=== PATIENT | female | born 1990 | race Caucasian/White ===

== ENCOUNTER 2017-06-22 11:46 | Observation (INO) | payer BC, OTHER ==
[2017-06-22] MEDS ORDERED: HYDROCODONE/ACETAMINOPHEN 5-325 MG TABLET PO ONE (12:32)
[2017-06-22] MEDS ORDERED: ONDANSETRON 4 MG TAB.RAPDIS PO ONE (12:32)
--- NOTE | 2017-06-22 12:34 | ER Document Report ---
ED Medical Screen (RME) - General Chief Complaint: Epigastric Pain Stated Complaint: ABDOMINL PAIN Time Seen by Provider: 06/22/17 12:29 Notes: 27-year-old female patient had barbecue for dinner last night, woke up at 400 severe epigastric right upper quadrant abdominal pain with nausea and vomiting. I have greeted and performed a rapid initial assessment of this patient. A comprehensive ED assessment and evaluation of the patient, analysis of test results and completion of the medical decision making process will be conducted by additional ED providers. TRAVEL OUTSIDE OF THE [place] IN LAST 30 DAYS: No - Related Data Allergies/Adverse Reactions: No Known Allergies Allergy (Unverified 06/22/17 11:53) Past Medical History - Social History Frequency of alcohol use: Occasional Drug Abuse: Marijuana Renal/ Medical History: Denies: Hx Peritoneal Dialysis Physical Exam - Vital signs Vitals: Temp Pulse Resp BP Pulse Ox 97.4 F 95 20 118/73 100 06/22/17 12:03 06/22/17 12:03 06/22/17 12:03 06/22/17 12:03 06/22/17 12:03 Course - Vital Signs Vital signs: Temp Pulse Resp BP Pulse Ox 97.4 F 95 20 118/73 100 06/22/17 12:03 06/22/17 12:03 06/22/17 12:03 06/22/17 12:03 06/22/17 12:03
[2017-06-22 12:56] LABS: HEMATOCRIT 44.1 % (36.0-47.0); HEMOGLOBIN 14.9 g/dL (12.0-15.5); MEAN CORPUSCULAR HEMOGLOBIN 30.3 pg (27.0-33.4); MEAN CORPUSCULAR HGB CONC 33.8 g/dL (32.0-36.0); MEAN CORPUSCULAR VOLUME 90 fl (80-97); PLATELET COUNT 308 10^3/uL (150-450); RED BLOOD COUNT 4.93 10^6/uL (3.72-5.28)
[2017-06-22 13:26] LABS: ABSOLUTE LYMPHOCYTES# (MANUAL) 1.3 10^3/uL (0.5-4.7); ABSOLUTE MONOCYTES # (MANUAL) 0.7 10^3/uL (0.1-1.4); ABSOLUTE NEUTROPHILS# (MANUAL) 19.8 10^3/uL (1.7-8.2); ALANINE AMINOTRANSFERASE 35 U/L (9-52); ALBUMIN 5.2 g/dL (3.5-5.0); ALKALINE PHOSPHATASE 100 U/L (38-126); ANION GAP 12 (5-19); ASPARTATE AMINO TRANSFERASE 22 U/L (14-36); BASOPHILS % (MANUAL) 1 % (0-2); BILIRUBIN,DIRECT 0.2 mg/dL (0.0-0.4); BILIRUBIN,TOTAL 1.1 mg/dL (0.2-1.3); BLOOD UREA NITROGEN 9 mg/dL (7-20); CALCIUM 10.9 mg/dL (8.4-10.2); CARBON DIOXIDE 24 mmol/L (22-30); CHLORIDE 104 mmol/L (98-107); EOSINOPHILS % (MANUAL) 0 % (0-6); GLUCOSE 98 mg/dL (75-110); LIPASE 25.8 U/L (23-300); LYMPHOCYTES % (MANUAL) 6 % (13-45); MONOCYTES % (MANUAL) 3 % (3-13); POTASSIUM 4.1 mmol/L (3.6-5.0); SEGMENTED NEUTROPHILS % (MAN) 90 % (42-78); SODIUM 140.4 mmol/L (137-145); TOTAL CELLS COUNTED 100; TOTAL PROTEIN 8.5 g/dL (6.3-8.2); TOXIC GRANULATION SLIGHT; TOXIC VACUOLATION PRESENT
[2017-06-22 13:27] LABS: PLATELET COMMENT ADEQUATE; POLYCHROMASIA SLIGHT
--- NOTE | 2017-06-22 14:06 | RADIOLOGY REPORT (SQ) ---
EXAM DESCRIPTION: U/S ABDOMEN LIMITED W/O DOP COMPLETED DATE/TIME: 06/22/2017 1:54 pm REASON FOR STUDY: RUQ, epigastric pain started 0400, Bar-B-Q dinner COMPARISON: None. TECHNIQUE: Dynamic and static grayscale images acquired of the abdomen and recorded on PACS. Additio nal selected color Doppler and spectral images recorded. LIMITATIONS: None. FINDINGS: PANCREAS: No masses. Visualized pancreatic duct normal caliber. LIVER: No masses. Echotexture normal. LIVER VASCULATURE: Normal directional flow of the main portal vein and hepatic veins. GALLBLADDER: No stones. Normal wall thickness. No pericholecystic fluid. ULTRASOUND-DETECTED HDEZ'S SIGN: Negative. INTRAHEPATIC DUCTS AND COMMON DUCT: CBD and intrahepatic ducts normal caliber. No filling defects. INFERIOR VENA CAVA: Normal flow. AORTA: No aneurysm. RIGHT KIDNEY: Normal size. Normal echogenicity. No solid or suspicious masses. No hydronephrosis. No calcifications. PERITONEAL AND RIGHT PLEURAL SPACE: No ascites or effusions. OTHER: No other significant findings. IMPRESSION: NORMAL RIGHT UPPER QUADRANT ULTRASOUND. TECHNICAL DOCUMENTATION: JOB ID: [id number] [employer]- All Rights Reserved
[2017-06-22] MEDS ORDERED: NORMAL SALINE 1000 ML 1,000 ML IV ONE (15:10)
[2017-06-22] MEDS ORDERED: MORPHINE SULFATE 10 MG/ML INJ IV ONE (15:10)
[2017-06-22] MEDS ORDERED: ONDANSETRON HCL INJ/PF 4 MG/2 ML SDV IV ONE (15:10)
--- NOTE | 2017-06-22 15:13 | ER Document Report ---
ED General - General Chief Complaint: Epigastric Pain Stated Complaint: ABDOMINL PAIN Time Seen by Provider: 06/22/17 12:29 Notes: 27-year-old female patient. No significant past medical history. Woke up at 4 AM having some achy pain in her central abdomen. Continue to get worse throughout the day. Presented to the emergency department. Pain is mostly located around the umbilicus and seems to radiate down to the right lower quadrant. Associated with nausea and vomiting. Denies any fever, chills, sweats. Denies any significant back pain or hip pain. Denies any change in sexual partners. Patient is . Patient denies any abnormal vaginal discharge, , abnormal vaginal bleeding or other concerns at this time. TRAVEL OUTSIDE OF THE [place] IN LAST 30 DAYS: No - HPI Onset: This morning Quality of pain: Throbbing Severity: Moderate Pain Level: 3 Associated symptoms: Nausea, Vomiting Exacerbated by: Movement - Related Data Allergies/Adverse Reactions: No Known Allergies Allergy (Unverified 06/22/17 11:53) Past Medical History - General Information source: Patient - Social History Smoking Status: Never Smoker Cigarette use (# per day): No Frequency of alcohol use: Occasional Drug Abuse: Marijuana Lives with: Spouse/Significant other Family History: Reviewed & Not Pertinent Patient has suicidal ideation: No Patient has homicidal ideation: No - Past Medical History Cardiac Medical History: Reports: None Pulmonary Medical History: Reports: None EENT Medical History: Reports: None Neurological Medical History: Reports: None Endocrine Medical History: Reports: None Renal/ Medical History: Reports: None. Denies: Hx Peritoneal Dialysis Malignancy Medical History: Reports: None GI Medical History: Reports: None Musculoskeltal Medical History: Reports None Skin Medical History: Reports None Review of Systems - Review of Systems Constitutional: denies: Fever, Malaise, Weakness EENT: denies: Eye pain, Eye discharge, Blurred vision, Throat pain, Mouth pain Cardiovascular: denies: Chest pain, Palpitations, Heart racing, Orthopnea, Dizziness, Lightheaded Respiratory: denies: Cough, Hurts to breathe, Short of breath, Wheezing Gastrointestinal: Abdominal pain, Nausea, Vomiting, Poor appetite. denies: Black stools, Rectal bleeding Genitourinary: denies: Burning, Dysuria, Discharge, Frequency, Flank pain, Hematuria, Pain, Urgency, Retention Female Genitourinary: denies: No symptoms reported, , Heavy/abnormal periods, Irregular period, Vaginal discharge, Vaginal bleeding, Vaginal odor, Painful intercourse Musculoskeletal: denies: Back pain, Joint pain, Muscle pain, Muscle stiffness, Neck pain Skin: denies: Lesions, Lumps, Rash Hematologic/Lymphatic: denies: Anemia, Blood clots, Easy bleeding, Easy bruising Neurological/Psychological: denies: Confusion, Lost consciousness, Numbness Physical Exam - Vital signs Vitals: Temp Pulse Resp BP Pulse Ox 97.4 F 85 20 133/75 H 100 06/22/17 11:50 06/22/17 11:50 06/22/17 11:50 06/22/17 11:50 06/22/17 11:50 Interpretation: Normal - General General appearance: Appears well, Alert - HEENT Head: Normocephalic, Atraumatic Eyes: Normal Pupils: PERRL - Respiratory Respiratory status: No respiratory distress Chest status: Nontender Breath sounds: Normal Chest palpation: Normal - Cardiovascular Rhythm: Regular Heart sounds: Normal auscultation Murmur: No - Abdominal Inspection: Normal Distension: No distension Bowel sounds: Normal Tenderness: Tender, Guarding, Other - There is significant tenderness to palpation around the umbilicus which seems to radiate down to the right lower quadrant.. No: Rebound Organomegaly: No organomegaly - Back Back: Normal, Nontender - Extremities General upper extremity: Normal inspection, Nontender, Normal color, Normal ROM , Normal temperature General lower extremity: Normal inspection, Nontender, Normal color, Normal ROM , Normal temperature, Normal weight bearing. No: Ty's sign - Neurological Neuro grossly intact: Yes Cognition: Normal Orientation: AAOx4 [place] Coma Scale Eye Opening: Spontaneous [place] Coma Scale Verbal: Oriented [place] Coma Scale Motor: Obeys Commands [place] Coma Scale Total: 15 Speech: Normal Motor strength normal: LUE, RUE, LLE, RLE Sensory: Normal - Psychological Associated symptoms: Normal affect, Normal mood - Skin Skin Temperature: Warm Skin Moisture: Dry Skin Color: Normal Course - Re-evaluation Re-evalutation: 06/22/17 15:38 She has a white blood cell count of 22,000. Ultrasound was ordered at triage which was unremarkable. Will consult with surgery right now she has significant concerns at this time for appendicitis. 01/26/18 16:20 CT scan confirms acute appendicitis. Antibiotics ordered. Consulted with Dr. Marin with general surgery. Will take to the OR shortly. Patient is n.p.o. - Vital Signs Vital signs: Temp Pulse Resp BP Pulse Ox 97.4 F 95 20 118/73 100 06/22/17 12:03 06/22/17 12:03 06/22/17 12:03 06/22/17 12:03 06/22/17 12:03 - Laboratory Result Diagrams: 06/22/17 12:44 06/22/17 12:44 Laboratory results interpreted by me: 06/22/17 06/22/17 06/22/17 12:44 12:44 14:53 WBC 22.0 H Seg Neuts % (Manual) 90 H Lymphocytes % (Manual) 6 L Abs Neuts (Manual) 19.8 H Calcium 10.9 H Total Protein 8.5 H Albumin 5.2 H Urine Ketones 20 H Discharge - Discharge Clinical Impression: Acute appendicitis Qualifiers: Acute appendicitis type: unspecified acute appendicitis type Qualified Code(s) : K35.80 - Unspecified acute appendicitis Condition: Good Disposition: ADMITTED OBSERVATION Admitting Provider: Colinist Donte Marin Unit Admitted: Surgical Floor
[2017-06-22 15:37] LABS: APPEARANCE,URINE SLIGHTLY-CLOUDY; BILIRUBIN,URINE NEGATIVE (NEGATIVE); COLOR,URINE YELLOW; GLUCOSE, URINE NEGATIVE (NEGATIVE); KETONES,URINE 20 mg/dL (NEGATIVE); LEUKOCYTE ESTERASE,URINE NEGATIVE (NEGATIVE); NITRITE,URINE NEGATIVE (NEGATIVE); PROTEIN,URINE NEGATIVE (NEGATIVE); UROBILINOGEN,URINE NEGATIVE mg/dL (<2.0)
[2017-06-22] MEDS ORDERED: SUCCINYLCHOLINE CHLORIDE INJ 200 MG/10 ML VIAL ONE (15:51)
[2017-06-22] MEDS ORDERED: ROCURONIUM BROMIDE INJ 50 MG/5 ML VIAL IV ONE (15:51)
[2017-06-22] MEDS ORDERED: ONDANSETRON HCL INJ/PF 4 MG/2 ML SDV ONE ×2 (15:51→17:25)
[2017-06-22] MEDS ORDERED: METOCLOPRAMIDE HCL INJ/PF 10 MG/2 ML SDV ONE (15:51)
[2017-06-22] MEDS ORDERED: GLYCOPYRROLATE INJ 0.4 MG/2 ML VIAL ONE (15:51)
[2017-06-22] MEDS ORDERED: LIDOCAINE 2% INJ-PF (20 MG/ML) 2 ML AMPUL ONE (15:51)
[2017-06-22] MEDS ORDERED: KETOROLAC TROMETHAMINE 60 MG/2 ML SDV ONE (15:51)
[2017-06-22] MEDS ORDERED: NEOSTIGMINE METHYLSULFATE 10 MG/10 ML VIAL ONE (15:51)
[2017-06-22] MEDS ORDERED: DEXAMETHASONE SOD PHOSPHATE INJ 4 MG/1 ML VIAL ONE (15:51)
--- NOTE | 2017-06-22 16:14 | RADIOLOGY REPORT (SQ) ---
EXAM DESCRIPTION: CT ABD/PELVIS WITH IV ONLY COMPLETED DATE/TIME: 06/22/2017 3:52 pm REASON FOR STUDY: periumbilical pain with wbc OF 20k COMPARISON: None. TECHNIQUE: CT scan of the abdomen and pelvis performed using helical scanning technique with dynamic intravenous contrast injection. No oral contrast. Images reviewed with lung, soft tissue, and bone windows. Reconstructed coronal and sagittal MPR images reviewed. Delayed images for evaluation of the urinary system also acquired. All images stored on PACS. All CT scanners at this facility use dose modulation, iterative reconstruction, and/or weight based d osing when appropriate to reduce radiation dose to as low as reasonably achievable (ALARA). [facility]: Dose Right [facility]: CareDose [facility]: Dose Right [facility]: Teradose 4D [facility]: Audience CONTRAST TYPE AND DOSE: contrast/concentration: Isovue 370.00 mg/ml; Total Contrast Delivered: 93.0 ml; Total Saline Delivered: 71.0 ml RENAL FUNCTION: Creatinine 0.7 RADIATION DOSE: CT Rad equipment meets quality standard of care and radiation dose reduction techniq ues were employed. CTDIvol: 11.8 - 15.1 mGy. DLP: 1381 mGy-cm.. LIMITATIONS: Lack of oral contrast. FINDINGS: LOWER CHEST: No significant findings. No nodules or infiltrates. LIVER: Normal size. No masses. No dilated ducts. SPLEEN: Normal size. No focal lesions. PANCREAS: No masses. No significant calcifications. No adjacent inflammation or peripancreatic fluid collections. Pancreatic duct not dilated. GALLBLADDER: No identified stones by CT criteria. No inflammatory changes to suggest cholecystitis. ADRENAL GLANDS: No significant masses or asymmetry. RIGHT KIDNEY AND URETER: No solid masses. No significant calcifications. No hydronephrosis or hyd roureter. LEFT KIDNEY AND URETER: No solid masses. No significant calcifications. No hydronephrosis or hydr oureter. AORTA AND VESSELS: No aneurysm. No dissection. Renal arteries, SMA, celiac without stenosis. RETROPERITONEUM: No retroperitoneal adenopathy, hemorrhage or masses. BOWEL AND PERITONEAL CAVITY: No masses or inflammatory changes. No free fluid or peritoneal masses. APPENDIX: There is a dilated tubular structure in the right aspect of the pelvis posteriorly likely d ilated appendix consistent with appendicitis although it is difficult to confirm in continuity with c ecum. No abscess. PELVIS: No mass. No free fluid. Normal bladder. ABDOMINAL WALL: No masses. No hernias. BONES: No significant or acute findings. OTHER: No other significant finding. IMPRESSION: Dilated tubular structure deep in the right pelvis likely representing dilated appendix and appendicitis. No abscess. TECHNICAL DOCUMENTATION: JOB ID: [id number] Quality ID # [id number]: Final reports with documentation of one or more dose reduction techniques (e.g., Au tomated exposure control, adjustment of the mA and/or kV according to patient size, use of iterative reconstruction technique) 2010 [email or web address]- All Rights Reserved
[2017-06-22] MEDS ORDERED: CEFOXITIN 1 GM/D5W RTU 1 GM/50 ML RTUPB IV ONE (16:19)
[2017-06-22] MEDS ORDERED: BUPIVACAINE HCL 0.5 % INJ/PF 30 ML SDV ONE (16:47)
[2017-06-22] MEDS ORDERED: HYDROMORPHONE HCL INJ/PF 2 MG/ML AMPULE ONE (16:52)
[2017-06-22] MEDS ORDERED: EPHEDRINE SULFATE INJ 50 MG/1 ML AMPULE ONE (16:53)
[2017-06-22] MEDS ORDERED: MIDAZOLAM 2 MG/2 ML INJ ONE (16:53)
[2017-06-22] MEDS ORDERED: FENTANYL CITRATE INJ/PF 100 MCG/2 ML AMPUL ONE ×2 (16:53)
[2017-06-22] MEDS ORDERED: ACETAMINOPHEN 100 ML IV ONE (16:54)
[2017-06-22] MEDS ORDERED: PROPOFOL INJ 200 MG/20 ML VIAL IV ONE (16:54)
[2017-06-22] MEDS ORDERED: ONDANSETRON HCL INJ/PF 4 MG/2 ML SDV IV PRN ×2 (17:55→18:24)
[2017-06-22] MEDS ORDERED: PROMETHAZINE HCL INJ 25 MG/1 ML VIAL IV PRN ×2 (17:55)
[2017-06-22] MEDS ORDERED: MORPHINE SULFATE 10 MG/ML INJ IV PRN ×2 (17:55→18:24)
[2017-06-22] MEDS ORDERED: OXYCODONE-ACETAMINOPHEN 5-325 MG TABLET PO PRN ×3 (17:55→18:25)
[2017-06-22] MEDS ORDERED: MEPERIDINE HCL/PF INJ 25 MG/1 ML DISP.SYRIN IV PRN (17:55)
[2017-06-22] MEDS ORDERED: FENTANYL CITRATE INJ/PF 100 MCG/2 ML AMPUL IV PRN ×3 (17:55)
[2017-06-22] MEDS ORDERED: DIPHENHYDRAMINE HCL 50 MG/ML VIAL IV PRN (17:55)
--- NOTE | 2017-06-22 18:23 | Brief Operative Note ---
BRIEF OPERATIVE REPORT DATE OF SURGERY: 06/22/17 TIME OF SURGERY: 17:30 PREOPERATIVE DIAGNOSIS: Acute Appendicitis POSTOPERATIVE DIAGNOSIS: Same SURGEON: DOROTHY VILLALPANDO 1ST CANDY MAKER: VIANEY SIFUENTES FINDINGS: Acute Appendicitis COMPLICATIONS: None ESTIMATED BLOOD LOSS: negligible TISSUE REMOVED OR ALTERED: Appendix TECHNICAL PROCEDURE: See dictation
--- NOTE | 2017-06-22 19:44 | OPERATIVE REPORT E ---
Operative Report NAME: ANJANA GARDUNO : 1990 AGE: 27Y DATE OF SURGERY: 06/22/2017 ROOM: ED19 PREOPERATIVE DIAGNOSIS: ACUTE APPENDICITIS. POSTOPERATIVE DIAGNOSIS: ACUTE APPENDICITIS. OPERATION: Laparoscopic appendectomy. SURGEON: DOROTHY VILLALPANDO M.D. ANESTHESIA: General. FLUIDS: Crystalloids. DRAINS: None. COMPLICATIONS: None. CONDITION: Stable. INDICATION FOR PROCEDURE: This 27-year-old female presented to the emergency room with a 12-hour history of abdominal pain, which began in the lower midline, periumbilical region, and then radiated into the right lower quadrant. Patient had no change in bowel habits. She was seen in the emergency room. She was found to have mild to moderate right lower quadrant tenderness with guarding. Patient's white count was 22,000. CT scan revealed a dilated thickened appendix, suggestive of acute appendicitis. Patient is now brought to the operating room for definitive intervention. PROCEDURE: Patient was brought to the operating room suite and placed in the supine position on the operating table. Monitoring devices were attached. IV sedation was administered, followed by the induction of general endotracheal anesthesia. Patient's abdomen was prepped and draped in the usual sterile manner, and then a timeout was achieved. Once all concurred, local anesthesia was injected just below the umbilicus. We then made an incision through skin and subcutaneous tissue, down to the linea alba. Two 0 rectal stay sutures were placed in the linea alba. An incision was made between the 2 stay sutures. We then grasped the peritoneum with 2 hemostats. An incision was made between these 2 hemostats, thereby opening and entering the abdominal cavity. Digital exploration was done to ensure that there were no viscera adherent to the anterior abdominal wall. We then inserted our Linda trocar and secured it with the 2-0 Vicryl stay sutures, and began insufflation with CO2. Once we reached an intraabdominal pressure of 16, we inserted our laparoscopic camera and light source and surveyed the abdominal cavity. There was no evidence of any bleeding or injuries. We then placed our 2 remaining 5-mm trocars in the usual positions; 1 in the mid suprapubic position and 1 in the left lower quadrant. We immediately identified the cecum and we placed the bed in a Trendelenburg position and rotated it with the right side up and the left side down. We identified the appendix immediately and made an opening in the mesoappendix. Once this was done, we used the endoscopic TRISTAN to divide the appendix from the cecal base. We then reloaded the endoscopic TRISTAN and divided the mesoappendix with the TRISTAN. Once this was done, we placed the appendix in the Endo bag and removed it from the abdominal cavity. We surveyed the abdominal cavity for any further bleeding, and there was minimal bleeding from the staple line on the cecum, and this was cauterized. Once there was no further bleeding, we removed all trocars under direct vision and decompressed the abdomen, after irrigating the right lower quadrant. The bed was placed in the normal position, and then after decompressing the abdomen and removing all trocars, we approximated the infraumbilical fascial incision using 0 Vicryl on a UR-6 needle. Once this fascial defect was closed, all skin incisions were closed using 4-0 Vicryl subcuticular closure. The patient tolerated the procedure well. Sponge and instrument counts were correct. The patient was discharged to the PACU in stable condition. DICTATING PHYSICIAN: DOROTHY VILLALPANDO M.D. [id number] PHY#: [id number] ID: [id number] JOB#: [id number] ACCT: [id number] cc:DOROTHY VILLALPANDO M.D. >
[2017-06-22] MEDS: DEXTROSE 5%-LACTATED RINGERS 1,000 ML IV PRN (23:40)
[2017-06-23] MEDS: DEXTROSE 5%-LACTATED RINGERS 1,000 ML IV PRN (11:14)
[2017-06-23 11:51] VITALS: BP 125/85
--- NOTE | 2017-06-23 16:29 | PDOC DISCHARGE SUMMARY ---
General - Admit/Disc Date/PCP Admission Date/Primary Care Provider: 06/22/17 16:37 MARIA LUISA AWAD MD Discharge Date: 06/23/17 - Additional Information Resuscitation Status: Full Code Discharge Diet: Regular Discharge Activity: Activity As Tolerated, Balance Activity w/Rest Home Medications: Methylphenidate HCl [Methylphenidate ER] 1 tab PO TID PRN 06/22/17 History of Present Illness Patient complains of: She was admitted with complaints of abdominal pain History of Present Illness: ANJANA GARDUNO is a 27 year old female who was admitted 06/22/2017 with abdominal pain. Hospital Course Hospital Course: Patient was admitted 06/22/2017 taken to the operating room by Dr. Marin. Laparoscopic appendectomy was performed. Postoperative course was unremarkable. Warning of the first day she was eating normal diet, had normal bowel habits, and was ambulating. She is being discharged home. Physical Exam Vital Signs: Temp Pulse Resp BP Pulse Ox 98.2 F 53 L 16 125/85 100 06/23/17 11:49 06/23/17 11:49 06/23/17 11:49 06/23/17 11:49 06/23/17 11:49 Intake & Output 06/22/17 06/23/17 06/24/17 06:59 06:59 06:59 Intake Total 1500 Output Total 30 Balance 1470 General appearance: PRESENT: no acute distress - Incisions are clean dry and intact. The abdominal exam is unremarkable. Results Impressions: Abdomen Ultrasound 06/22/17 12:32 IMPRESSION: NORMAL RIGHT UPPER QUADRANT ULTRASOUND. Abdomen/Pelvis CT 06/22/17 15:11 IMPRESSION: Dilated tubular structure deep in the right pelvis likely representing dilated appendix and appendicitis. No abscess. Plan Discharge Plan: Discharge home. Return to [place] in 10 days for follow-up. Prescription for Morton 09/27/2024 #15, no refills, 1 or 2 tabs every 4 hours as needed pain. Discharge instructions Rial relating to diet and activity were given. Return to work slip was given. Time Spent: Less than 30 Minutes
== END 2017-06-23 12:17 | disposition home or self-care (01) ==
LOC: ER 11:46 → EH 16:37 → 2N 19:05
PROVIDERS: ADMIT Surgery; ATTEND Surgery
PROC: 0DTJ4ZZ Resection of Appendix, Percutaneous Endoscopic Approach (ICD-10-PCS; principal; 2017-06-22 17:30)
DX: K35.3 Acute appendicitis with localized peritonitis (principal); F12.10 Cannabis abuse, uncomplicated
CPT/HCPCS: 99285; 96361; 96375; 96365; 36415; 83690; 84703; 85025; 80053; 81001; 88304 ×2; 76705; 74177; 44970; G0378 ×3; J2250; J3490 ×3; J1100; J1885; S0119; J0694; J2765; J2270; J1170; J0330; J2405 ×2; J7030; J2704; J0131; 840; J3010

== ENCOUNTER 2018-08-30 17:06 | Emergency (ER) | payer OTHER ==
[2018-08-30 17:31] VITALS: BP 123/74
--- NOTE | 2018-08-30 18:02 | ER Document Report ---
ED Medical Screen (RME) - General Chief Complaint: Flank Pain Stated Complaint: FLANK PAIN Time Seen by Provider: 08/30/18 17:55 Primary Care Provider: MARIA LUISA AWAD MD [Primary Care Provider] - Follow up as needed Mode of Arrival: Ambulatory Information source: Patient Notes: Patient is a 28-year-old female who presents to the emergency department with pain in her right flank that radiates up into her shoulder and back. Patient denies any abdominal pain however there is tenderness to palpation to the right upper quadrant as well as epigastric area. Patient denies any nausea, vomiting or diarrhea. She states she had a small bowel movement this morning. She does report that she is having some vaginal bleeding however she states this has been ongoing since she had her IUD placed in April. Denies any dysuria or urinary frequency. Does report she has had a fever however she states that resolved yesterday. I have greeted and performed a rapid initial assessment of this patient. A comprehensive ED assessment and evaluation of the patient, analysis of test results and completion of the medical decision making process will be conducted by additional ED providers. Dictation of this chart was performed using voice recognition software; therefore, there may be some unintended grammatical errors. TRAVEL OUTSIDE OF THE [place] IN LAST 30 DAYS: No - Related Data Allergies/Adverse Reactions: No Known Allergies Allergy (Unverified 06/22/17 11:53) Past Medical History Renal/ Medical History: Denies: Hx Peritoneal Dialysis - Immunizations History of Influenza Vaccine for 02/2017 - 07/2017 Season: Yes Physical Exam - Vital signs Vitals: Temp Pulse Resp BP Pulse Ox 98.7 F 74 15 123/74 99 08/30/18 17:29 08/30/18 17:29 08/30/18 17:29 08/30/18 17:29 08/30/18 17:29 Course - Vital Signs Vital signs: Temp Pulse Resp BP Pulse Ox 98.7 F 74 15 123/74 99 08/30/18 17:29 08/30/18 17:29 08/30/18 17:29 08/30/18 17:29 08/30/18 17:29 Doctor's Discharge - Discharge Referrals: MARIA LUISA AWAD MD [Primary Care Provider] - Follow up as needed
[2018-08-30 18:30] LABS: ABSOLUTE EOSINOPHILS # (AUTO) 0.1 10^3/uL (0.0-0.6); ABSOLUTE LYMPHOCYTES (AUTO) 1.8 10^3/uL (0.5-4.7); ABSOLUTE MONOCYTES (AUTO) 0.7 10^3/uL (0.1-1.4); ABSOLUTE NEUT (AUTO) 3.5 10^3/uL (1.7-8.2); BASOPHILS % (AUTO) 0.4 % (0-2); EOSINOPHILS % (AUTO) 1.9 % (0-6); HEMATOCRIT 41.7 % (36.0-47.0); HEMOGLOBIN 14.3 g/dL (12.0-15.5); LYMPHOCYTES % (AUTO) 29.3 % (13-45); MEAN CORPUSCULAR HEMOGLOBIN 30.2 pg (27.0-33.4); MEAN CORPUSCULAR HGB CONC 34.4 g/dL (32.0-36.0); MEAN CORPUSCULAR VOLUME 88 fl (80-97); MONOCYTES % (AUTO) 10.7 % (3-13); PLATELET COUNT 230 10^3/uL (150-450); RED BLOOD COUNT 4.74 10^6/uL (3.72-5.28); RED CELL DISTRIBUTION WIDTH 13.1 % (11.5-14.0); SEGMENTED NEUTROPHILS % (AUTO) 57.7 % (42-78); TOTAL CELLS COUNTED % (AUTO) 100 %; WHITE BLOOD COUNT 6.1 10^3/uL (4.0-10.5)
[2018-08-30 18:37] LABS: APPEARANCE,URINE CLEAR; BILIRUBIN,URINE NEGATIVE (NEGATIVE); COLOR,URINE STRAW; GLUCOSE, URINE NEGATIVE (NEGATIVE); KETONES,URINE NEGATIVE (NEGATIVE); LEUKOCYTE ESTERASE,URINE NEGATIVE (NEGATIVE); NITRITE,URINE NEGATIVE (NEGATIVE); PROTEIN,URINE NEGATIVE (NEGATIVE); URINE SPECIFIC GRAVITY 1.003; UROBILINOGEN,URINE NEGATIVE mg/dL (<2.0)
[2018-08-30 18:50] LABS: ALANINE AMINOTRANSFERASE 26 U/L (9-52); ALBUMIN 4.7 g/dL (3.5-5.0); ALKALINE PHOSPHATASE 120 U/L (38-126); ANION GAP 11 (5-19); ASPARTATE AMINO TRANSFERASE 19 U/L (14-36); BILIRUBIN,DIRECT 0.2 mg/dL (0.0-0.4); BILIRUBIN,TOTAL 0.5 mg/dL (0.2-1.3); BLOOD UREA NITROGEN 12 mg/dL (7-20); CALCIUM 10.1 mg/dL (8.4-10.2); CARBON DIOXIDE 24 mmol/L (22-30); CHLORIDE 103 mmol/L (98-107); GLUCOSE 85 mg/dL (75-110); POTASSIUM 4.1 mmol/L (3.6-5.0); SODIUM 137.9 mmol/L (137-145)
--- NOTE | 2018-08-30 21:03 | ER Document Report ---
ED GI/ - General Chief Complaint: Flank Pain Stated Complaint: FLANK PAIN Time Seen by Provider: 08/30/18 17:55 Primary Care Provider: MARIA LUISA AWAD MD [COMMUNITY BASED STAFF] - Follow up as needed Mode of Arrival: Ambulatory Information source: Patient TRAVEL OUTSIDE OF THE [place] IN LAST 30 DAYS: No - HPI Patient complains to provider of: Flank pain Notes: 08/30/18 21:00 Patient is here with complaints of right flank pain. She states that she woke up with the pain this morning. The pain has been constant, but the intensity has waxed and waned. Nothing seems to make the pain better. Pain is moderate to severe. Pain is worse with taking deep breaths as well as movements and cough. She denies any specific chest pain or shortness of breath. No fever. No nausea, vomiting, diarrhea. No dysuria or hematuria. She denies any prior history of kidney stone. She has had prior appendectomy as well as . She has a Mirena IUD. She denies any recent long trips or surgeries, no leg pain or leg swelling, no smoking, no history of DVT or PE, no history of cancer. No rash. No injury. No other specific complaints at this time. - Related Data Allergies/Adverse Reactions: No Known Allergies Allergy (Unverified 06/22/17 11:53) Past Medical History - General Information source: Patient - Social History Smoking Status: Unknown if Ever Smoked Family History: Reviewed & Not Pertinent Patient has suicidal ideation: No Patient has homicidal ideation: No - Past Medical History Cardiac Medical History: Reports: Hx Hypertension Renal/ Medical History: Denies: Hx Peritoneal Dialysis Past Surgical History: Reports: Hx Appendectomy, Hx Section Review of Systems - Review of Systems -: Yes All other systems reviewed and negative Physical Exam - Vital signs Vitals: Temp Pulse Resp BP Pulse Ox 98.7 F 74 15 123/74 99 08/30/18 17:29 08/30/18 17:29 08/30/18 17:29 08/30/18 17:29 08/30/18 17:29 - Notes Notes: GENERAL: alert, cooperative, nontoxic, no distress. HEAD: normocephalic, atraumatic EYES: conjunctiva pink without discharge, no external redness or swelling. EARS: no external swelling, no external redness NOSE: atraumatic, no external swelling MOUTH/THROAT: mucous membranes moist and pink, posterior pharynx without erythema, swelling, exudate. No trismus or drooling. NECK: soft, supple, full range of motion, no meningismus. CHEST: no distress, lungs clear and equal throughout. No wheezing, rales, rhonchi. CARDIAC: regular rate and rhythm, no murmur, normal capillary refill, normal pulses. No peripheral edema noted. ABDOMEN: Soft, mild tenderness palpation of the right upper and right mid abdomen. No rebound tenderness or guarding. No mass. BACK: full range of motion, mild right CVA tenderness. EXTREMITIES: full range of motion of all extremities. No redness, no swelling. NEURO: alert and oriented x 3, no focal deficits, full range of motion of all extremities. PYSCH: appropriate mood, affect. Patient is cooperative. SKIN: pink, warm, dry, no rash. Course - Re-evaluation Re-evalutation: 08/30/18 22:10 CT negative for kidney stones or other acute abnormalities. IUD is noted to be flipped with possible implantation into the myometrium. No of other infla mmatory findings noted. Ultrasound has been ordered. We will continue to monitor patient at this time. 08/31/18 00:10 Ultrasound of the pelvis shows a malpositioned IUD but the arms were not well vi sualized. Left ovary was on visualized. I discussed the case with LABORATORY ASSOCIATE, Dr. gutierrez. She states that she will come to the emergency department at this time to remove the IUD to see if this helps with the patient's pain. Discussed this with the patient, she is in agreement with this plan and will await Dr. gutierrez's evaluation. 08/31/18 00:48 Patient was seen by LABORATORY ASSOCIATE in the emergency department. There were no IUD strings visible, therefore they were unable to remove the IUD in the emergency department. Patient will be discharged home with a small supply of pain medication and instructions to follow-up with LABORATORY ASSOCIATE on Sunday to have this removed in the office with more tools. Patient is nontoxic-appearing with stable vitals. She is here with complaints of right flank pain. CT showed no kidney stone or other right upper quadrant abnormality. Her labs are all unremarkable. No signs of a UTI or pyelonephritis. Vitals are stable. Do not appreciate a rash. I did explain to the patient that her symptoms could potentially be related to her IUD that stuck into her myometrium, although it is very possible that she could have a very early shingles. If she develops a rash to the right side of her flank, she should be evaluated for this as that would be consistent with possible shingles. This point the patient will be discharged home. Follow-up for any worsening pain, high fever, persistent vomiting, or for any further concerns. 08/31/18 00:49 The patient's emergency department workup and current diagnosis were explained to the patient and or family. Follow-up instructions were provided. Medications if prescribed were discussed. Instructions for when to return to the emergency department including specific worrisome symptoms were discussed with the patient and/or family. - Vital Signs Vital signs: Temp Pulse Resp BP Pulse Ox 98.7 F 74 15 123/74 99 08/30/18 17:29 08/30/18 17:29 08/30/18 17:29 08/30/18 17:29 08/30/18 17:29 - Laboratory Result Diagrams: 08/30/18 18:10 08/30/18 18:10 Laboratory results interpreted by me: 08/30/18 18:10 Urine Blood SMALL H - Diagnostic Test Radiology reviewed: Image reviewed, Reports reviewed Discharge - Discharge Clinical Impression: Right flank pain, IUD complication Condition: Stable Disposition: HOME, SELF-CARE Instructions: Oral Narcotic Medication ([facility]), Abdominal Pain ([facility]) Additional Instructions: Take medication as prescribed. Follow-up with LABORATORY ASSOCIATE on Sunday to have your IUD removed. Follow-up sooner for worsening pain, high fever, persistent vomiting, rash, any further concerns. Prescriptions: Hydrocodone/Acetaminophen [[place] 5-325 mg Tablet] 2 tab PO Q6H PRN #10 tab PRN Reason: Naproxen [Naprosyn] 500 mg PO BID #20 tablet Referrals: MARIA LUISA AWAD MD [COMMUNITY BASED STAFF] - Follow up as needed CORA PATEL DO [ACTIVE STAFF] - Follow up as needed
[2018-08-30] MEDS ORDERED: KETOROLAC TROMETHAMINE INJ/PF 30 MG/1 ML SDV IM ONE (21:22)
--- NOTE | 2018-08-30 21:23 | RADIOLOGY REPORT (SQ) ---
EXAM DESCRIPTION: Chest 2 views, PA and lateral Views: 2 CLINICAL HISTORY: 28 years Female, pain COMPARISON: None. FINDINGS: The lungs are clear. No pneumothorax or significant pleural effusion. Cardiomediastinal silhouette is within normal limits. Bony structures are unremarkable for age. IMPRESSION: 1. No acute cardiothoracic abnormality.
--- NOTE | 2018-08-30 21:40 | RADIOLOGY REPORT (SQ) ---
EXAM DESCRIPTION: CT abdomen pelvis without contrast CLINICAL HISTORY: 28 years Female; right flank pain TECHNIQUE: CT of the abdomen and pelvis without contrast. All CT scans at this facility use dose modulation, iterative reconstruction, and/or weight based dosing when appropriate to reduce radiation dose to as low as reasonably achievable. COMPARISON: CT 06/22/2017 FINDINGS: Abdomen: Liver:No focal lesions. No intrahepatic ductal distention. Gallbladder:Negative Pancreas:Within normal limits Spleen:Within normal limits Right kidney:No hydronephrosis. No renal or ureteral calculi. Left kidney:No hydronephrosis. No renal or ureteral calculi. Adrenal glands:Within normal limits Vascular structures:Within normal limits (although limited evaluation on noncontrast exam). Pelvis: Small bowel:No significant distention. Appendix: Not identified, likely surgically absent. Colon: There is moderate proximal colonic fecal retention. No acute pericolonic edema. No free intraperitoneal fluid or air. Uterus: An IUD is in place, new since prior exam. The limbs of the IUD are rotated into a nearly sagittal plane. The anterior/inferior limb protrudes into and possibly through the myometrium. There is no adjacent edema or fluid collection. No adnexal enlargement. No acute pelvic soft tissue edema. Note that evaluation of the bowel and solid organs is somewhat limited due to lack of intravenous and oral contrast. IMPRESSION: 1. No renal or ureteral calculi. No hydronephrosis. 2. IUD, rotated nearly into the sagittal plane with the anterior/inferior limb protruding into and possibly through the myometrium. No associated acute inflammatory changes. 3. Colonic fecal retention, but no small bowel distention.
[2018-08-30] MEDS ORDERED: HYDROCODONE/ACETAMINOPHEN 5-325 MG TABLET PO ONE (22:25)
--- NOTE | 2018-08-30 23:33 | RADIOLOGY REPORT (SQ) ---
EXAM DESCRIPTION: US TRANSVAGINAL COMPLETED DATE/TME: 08/30/2018 22:10 CLINICAL HISTORY: 28 years Female, abdominal pain. IUD malposition. COMPARISON: CT performed same day. TECHNIQUE: Complete pelvic ultrasound obtained with transvaginal imaging. FINDINGS: Uterus: Uterus measures 8.1 x 3.6 x 4.6 cm. The cervix is closed. Endometrium: Endometrial thickness of 0.3 cm. IUD identified with stem in the lower uterine segment. The arms of the IUD not well identified on this study. Right ovary: Right ovary measures 2.5 x 2.1 x 2.8 cm. Left ovary: Left ovary not identified. Adnexa: Large adnexal masses. Free fluid: No free pelvic fluid. Duplex imaging: Color and spectral Doppler imaging demonstrates blood flow in the right ovary. IMPRESSION: 1. IUD malpositioned with stem in the lower uterine segment. The arms are not evaluated well on this study. 2. The left ovary is not visualized on this study due to overlying structures.
--- NOTE | 2018-08-31 00:54 | PDOC CONSULTATION ---
Consultation Consult Date: 08/31/18 Attending physician:: CORA DICKENS Consult reason:: Flank pain History of Present Illness Admission Date/PCP: ERIC HARRY This 28-year-old Patient complains of: Flank pain History of Present Illness: ANJANA GARDUNO is a 28 year old presented to the emergency department complaining of flank pain started this morning. Patient had an IUD placed on May 27, 2018 and has been bleeding irregularly ever since. Patient believes that her last menstrual cycle was in May 2017. She is recent . She had a primary low transverse section March 2018. She subsequently underwent a pelvic ultrasound tonight which showed a malpositioned IUD. Patient desired to have the IUD removed at this visit. Past Medical History LMP: May 2017 Gynecological Infection: No 1 Baby 1 Year: 2,018 Delivery: : Low Cervical, Transverse Cardiac Medical History: Reports: Hypertension Social History Information Source: Patient Lives with: Spouse/Significant other Smoking Status: Never Smoker Frequency of Alcohol Use: None Hx Recreational Drug Use: No Family History Family History: Reviewed & Not Pertinent Parental Family History Reviewed: Yes Children Family History Reviewed: NA Sibling(s) Family History Reviewed.: NA Medication/Allergy Home Medications: Methylphenidate HCl [Methylphenidate ER] 1 tab PO TID PRN 06/22/17 Allergies/Adverse Reactions: No Known Allergies Allergy (Unverified 06/22/17 11:53) Review of Systems Constitutional: PRESENT: as per HPI Cardiovascular: ABSENT: as per HPI, chest pain, dyspnea on exertion, edema, orthropnea, palpitations, other Respiratory: ABSENT: as per HPI, cough, dyspnea, hemoptysis, sputum, other Integumentary: PRESENT: other - Flank pain Physical Exam - Physical Exam Vital Signs: Temp Pulse Resp BP Pulse Ox 98.7 F 74 15 123/74 99 08/30/18 17:29 08/30/18 17:29 08/30/18 17:29 08/30/18 17:29 08/30/18 17:29 Intake & Output 08/29/18 08/30/18 08/31/18 06:59 06:59 06:59 Weight 100.3 kg - Gynecological Exam Labia: normal Urethra: normal Perineum: normal Vagina: other - Retained tampon--removed Cervix: other - IUD strings not visible Cervix: other Result Laboratory Results: 08/30/18 18:10 08/30/18 18:10 08/30/18 08/30/18 08/30/18 18:10 18:10 18:10 WBC 6.1 RBC 4.74 Hgb 14.3 Hct 41.7 MCV 88 MCH 30.2 MCHC 34.4 RDW 13.1 Plt Count 230 Seg Neutrophils % 57.7 Lymphocytes % 29.3 Monocytes % 10.7 Eosinophils % 1.9 Basophils % 0.4 Absolute Neutrophils 3.5 Absolute Lymphocytes 1.8 Absolute Monocytes 0.7 Absolute Eosinophils 0.1 Absolute Basophils 0.0 Sodium 137.9 Potassium 4.1 Chloride 103 Carbon Dioxide 24 Anion Gap 11 BUN 12 Creatinine 0.65 Est GFR ( Amer) > 60 Est GFR (Non-Af Amer) > 60 Glucose 85 Calcium 10.1 Total Bilirubin 0.5 AST 19 ALT 26 Alkaline Phosphatase 120 Total Protein 8.0 Albumin 4.7 Lipase Serum HCG, Qual NEGATIVE Urine Color Urine Appearance Urine pH Ur Specific [place] Urine Protein Urine Glucose (UA) Urine Ketones Urine Blood Urine Nitrite Ur Leukocyte Esterase Urine WBC (Auto) 08/30/18 08/30/18 18:10 18:10 WBC RBC Hgb Hct MCV MCH MCHC RDW Plt Count Seg Neutrophils % Lymphocytes % Monocytes % Eosinophils % Basophils % Absolute Neutrophils Absolute Lymphocytes Absolute Monocytes Absolute Eosinophils Absolute Basophils Sodium Potassium Chloride Carbon Dioxide Anion Gap BUN Creatinine Est GFR ( Amer) Est GFR (Non-Af Amer) Glucose Calcium Total Bilirubin AST ALT Alkaline Phosphatase Total Protein Albumin Lipase 43.6 Serum HCG, Qual Urine Color STRAW Urine Appearance CLEAR Urine pH 6.0 Ur Specific [place] 1.003 Urine Protein NEGATIVE Urine Glucose (UA) NEGATIVE Urine Ketones NEGATIVE Urine Blood SMALL H Urine Nitrite NEGATIVE Ur Leukocyte Esterase NEGATIVE Urine WBC (Auto) 0 Impressions: Chest X-Ray 08/30/18 20:42 IMPRESSION: 1. No acute cardiothoracic abnormality. Abdomen/Pelvis CT 08/30/18 20:59 IMPRESSION: 1. No renal or ureteral calculi. No hydronephrosis. 2. IUD, rotated nearly into the sagittal plane with the anterior/inferior limb protruding into and possibly through the myometrium. No associated acute inflammatory changes. 3. Colonic fecal retention, but no small bowel distention. Transvaginal US 08/30/18 22:10 IMPRESSION: 1. IUD malpositioned with stem in the lower uterine segment. The arms are not evaluated well on this study. 2. The left ovary is not visualized on this study due to overlying structures. Assessment & Plan - Diagnosis (1) Retained tampon Is this a current diagnosis for this admission?: Yes (2) Malpositioned intrauterine device (IUD) Is this a current diagnosis for this admission?: Yes (3) IUD (intrauterine device) in place Is this a current diagnosis for this admission?: Yes - Time Critical Time spent with patient: 15-24 minutes - Plan Summary Plan Summary: 1. Attempted removal of IUD--discovered a retained tampon, which was removed 2. Discharge home 3. Follow-up in the office for IUD removal--unable to remove IUD secondary to nonvisible strings and unavailability of proper instrumentation
== END 2018-08-31 01:20 | disposition home or self-care (01) ==
LOC: ER 17:06
DX: T83.32XA Displacement of intrauterine contraceptive device, initial encounter (principal); Y76.8 Miscellaneous obstetric and gynecological devices associated with adverse incidents, not elsewhere classified; Z90.49 Acquired absence of other specified parts of digestive tract; T19.2XXA Foreign body in vulva and vagina, initial encounter; X58.XXXA Exposure to other specified factors, initial encounter; I10 Essential (primary) hypertension; R10.811 Right upper quadrant abdominal tenderness; R10.9 Unspecified abdominal pain
CPT/HCPCS: 99284; 96372; 36415; 83690; 84703; 85025; 80053; 81001; 71046; 76830; 93976; 74176; J1885

== ENCOUNTER → 2020-06-19 | Outpatient (CLI) | payer OTHER ==
[~2020-06-19] MED LIST: COVID-19 VACCINE (PFIZER)/PF 30 MCG/0.3 ML VIAL IM ONE; EPINEPHRINE INJ/PF 1 MG/1 ML AMPULE IM PRN
== END ==
LOC: EMPHEALTH 10:36
PROVIDERS: ATTEND Internal Medicine
DX: Z23 Encounter for immunization (principal)
CPT/HCPCS: 91300